=== PATIENT | male | born 1965 | race Caucasian/White ===

== ENCOUNTER 2016-11-13 19:18 | Emergency (ER) | payer MEDICARE, SELFPAY ==
[~2016-11-13 19:18] MED LIST: ADVAIR 1001 DISK W/D IH; ADVAIR 5001 DISK W/D; ADVAIR 50028 BLISTE1 INH; ALBUTEROL0.83 MG/ML; ALBUTEROL17 GM; ANCEF PO; AUGMENTIN 875-1 EAC2 PO; AVELOX400 MG; AVELOX400 MG PO; AZITHROMYCIN250 M1 PO; BACTRIM DS TAB1 EACH PO; BACTROBAN22 GM TP; CEFTIN500 M1 PO; CELEXA; CHANTIX; CIPRO500 MG PO; CITALOPRAM HBR10 M1 PO; COMBIVENT INH14.7 GM; DELTASONE10 MG PO; DEPAKOTE250 M1 PO; DIFLUCAN100 M1 PO; DUONEB 2.5-0.5 M3 ML IH; FIORICET 50-301 EAC1 PO; FLAGYL500 M1 PO; FLEXERIL10 MG PO; FLUOXETINE HCL20 M2 PO; FLUTICASONE P15.8 ML; IPRAT-ALBUT 0.5-3 ML INH; KEFLEX500 M4 PO; KEFLEX500 MG PO; KLOR-CON M20 MEQ/TAB PO; LASIX20 M1 PO; LASIX40 M1 PO; LEVAQUIN500 MG PO; LEVAQUIN750 M1 PO; METOPROLOL TART25 M1 PO; MOTRIN400 MG PO; MUCINEX600 M1 PO; NAPROSYN500 MG PO; NITROQUICK0.4 MG SL; NORCO 5/325 TAB1 TAB PO; NORCO 7.5/325 T1 TAB PO; OXYGEN; PAXIL10 M1 PO; POTASSIUM CHLO10 ME2 PO; PREDNISONE10 M1; PREDNISONE10 M1 PO; PREDNISONE10 MG; PREDNISONE10 MG PO; PREDNISONE20 MG PO; PREDNISONE5 M1 PO; PREDNISONE50 M1 PO; PRILOSEC20 MG PO; PROTONIX40 M2 PO; PROTONIX40 M3 PO; PROVENTIL HFA6.7 G1 INH; PROVENTIL17 GM; RISPERDAL1 MG PO; SEPTRA DS TABLE1 TAB PO; SINGULAIR PO; SINGULAIR10 M1 PO; SINGULAIR10 MG PO; SKELAXIN800 MG PO; STERAPRED10 MG/DOSE PO; SYNTHROID50 MC1 PO; SYNTHROID75 MC1 PO; TAMIFLU75 MG PO; TESSALON200 MG PO; TINDAMAX500 MG PO; TUDORZA PRESS400 MC1 IH; TYLENOL325 M2 PO; ULTRAM ER100 M1 PO; ULTRAM50 MG PO; VIBRAMYCIN100 MG PO; VICODIN 5/500 T1 TAB PO; VIGAMOX3 M1 OP; XARELTO20 M1 PO; XYZAL5 M1 PO; ZANAFLEX2 M3 PO
[2016-11-13 21:41] LABS: URINE BILIRUBIN NEGATIVE (NEG); URINE BLOOD NEGATIVE (NEG); URINE GLUCOSE (UA) NEGATIVE (NEG); URINE KETONE NEGATIVE (NEG); URINE LEUKOCYTE ESTERASE NEGATIVE (NEG); URINE NITRITE NEGATIVE (NEG); URINE PROTEIN NEGATIVE (NEG); URINE SPECIFIC GRAVITY 1.015 (1.003-1.030)
[2016-11-13 21:43] LABS: URINE APPEARANCE CLEAR; URINE COLOR YELLOW
[2016-11-13 21:44] LABS: BASO % 0.3 % (0-2); BASO ABSOLUTE COUNT 0.1 tho/cmm (0.0-0.2); EOS % 1.9 % (0-7); EOSINOPHIL ABSOLUTE COUNT 0.3 tho/cmm (0.0-0.7); HCT-HEMATOCRIT 37.9 % (36.0-53.5); HGB-HEMOGLOBIN 10.8 gm/dl (13.5-17.0); IMMATURE GRANULOCYTES ABSOLUTE 0.09 tho/cmm (0-0.03); IMMATURE GRANULOCYTES PERCENT 0.6 % (0-0.3); LYMPH % 11.4 % (20-45); LYMPH ABSOLUTE COUNT 1.6 tho/cmm (0.8-4.5); MCH (MEAN CORPUSCULAR HGB) 23.7 pg (28.0-32.0); MCV (MEAN CELL VOLUME) 83.1 fl (82.0-96.0); MONO % 4.2 % (0-12); MONOCYTE ABSOLUTE COUNT 0.6 tho/cmm (0.0-1.2); NEUTROPHIL ABSOLUTE COUNT 11.7 tho/cmm (1.6-8.0); NEUTROPHIL-AUTOMATED 11.7 tho/cmm (1.6-8.0); NEUTROPHILS % 81.6 % (40-80); PLATELET COUNT 217 tho/cmm (150-450); RED BLOOD COUNT 4.56 mil/cmm (4.40-5.70); RED CELL DISTRIBUTION WIDTH 17.9 % (12.4-16.4); WHITE BLOOD COUNT 14.4 tho/cmm (4.0-10.0)
[2016-11-13 21:55] LABS: MCHC MEAN CORPUSCULAR HGB CONC 28.5 % (32.0-36.0)
[2016-11-13 21:56] LABS: ALB/GLOB RATIO 0.5 (0.8-2.0); ALBUMIN 3.1 g/dl (3.5-5.0); ALKALINE PHOSPHATASE 113 U/L (33-138); ALT/SGPT 30 U/L (12-78); ANION GAP 8 mmol/L (0-20); AST/SGOT 18 U/L (10-40); BILIRUBIN,TOTAL 0.2 mg/dl (0.0-1.5); BLOOD UREA NITROGEN 11 mg/dl (6-24); CALCIUM 8.3 mg/dl (8.5-10.5); CARBON DIOXIDE-VENOUS 36 mmol/L (22-32); CHLORIDE 100 mmol/l (96-110); CREATININE 0.73 mg/dl (0.60-1.30); GLUCOSE 130 mg/dL (70-110); LIPASE 127 U/L (73-393); SODIUM 140 mmol/L (135-145); eGFR VALUE FOR BLACK >90 mL/Min
== END 2016-11-14 00:30 ==
LOC: EDMED 19:18
PROVIDERS: Physician Assistant
DX: D64.9 Anemia, unspecified (principal); R10.9 Unspecified abdominal pain; I48.91 Unspecified atrial fibrillation; J44.9 Chronic obstructive pulmonary disease, unspecified; J45.909 Unspecified asthma, uncomplicated; G47.33 Obstructive sleep apnea (adult) (pediatric); Z90.49 Acquired absence of other specified parts of digestive tract; Z98.890 Other specified postprocedural states; Z87.891 Personal history of nicotine dependence; Z79.890 Hormone replacement therapy; Z79.51 Long term (current) use of inhaled steroids; Z79.899 Other long term (current) drug therapy
CPT/HCPCS: Q9967